=== PATIENT | female | born 1980 | race Two or more races ===

== ENCOUNTER 2018-12-23 16:47 | Emergency (ER) | payer MEDICAID ==
[~2018-12-23] VITALS: Ht 165.1 cm; Wt 118.0 kg
[2018-12-23 17:41] VITALS: BP 141/100
== END 2018-12-23 20:15 | disposition left against medical advice (07) ==
LOC: ER 16:47
DX: J02.9 Acute pharyngitis, unspecified (principal); H92.01 Otalgia, right ear
CPT/HCPCS: 99281